=== PATIENT | female | born 1970 | race Asian ===

== ENCOUNTER → 2022-04-18 | Outpatient (CLI) | payer BC | END | disposition home or self-care (01) | LOC: LAB SHORT 18:21 → LAB 18:21 | DX: N39.0 Urinary tract infection, site not specified (principal) | CPT/HCPCS: 87077; 87086; 87186 ==

== ENCOUNTER 2022-06-23 06:32 | Day surgery (SDC) | payer BC ==
[~2022-06-23] VITALS: Ht 149.9 cm; Wt 68.1 kg
[2022-06-23] MEDS ORDERED: ALBU8HFA2 (07:33)
[2022-06-23] MEDS ORDERED: PSEU120ER (07:33)
[2022-06-23] MEDS ORDERED: BUPR150ER (07:33)
[2022-06-23] MEDS ORDERED: GABA100 (07:33)
[2022-06-23] MEDS ORDERED: LIOT5 (07:34)
[2022-06-23] MEDS ORDERED: DULERA 100 MCG/13 GM (07:34)
[2022-06-23] MEDS ORDERED: LEVSOD75 (07:34)
[2022-06-23] MEDS ORDERED: MONT10T (07:35)
== END 2022-06-23 09:15 | disposition home or self-care (01) ==
LOC: ORSCSDS 06:32
PROVIDERS: Student in an Organized Health Care Education/Training Program
PROC: 0DBK8ZX Excision of Ascending Colon, Via Natural or Artificial Opening Endoscopic, Diagnostic (ICD-10-PCS; principal; 2022-06-23 08:00)
PROC: 0DBN8ZX Excision of Sigmoid Colon, Via Natural or Artificial Opening Endoscopic, Diagnostic (ICD-10-PCS; principal; 2022-06-23 08:00)
DX: Z12.11 Encounter for screening for malignant neoplasm of colon (principal); D12.2 Benign neoplasm of ascending colon; K63.5 Polyp of colon; J45.909 Unspecified asthma, uncomplicated; E03.9 Hypothyroidism, unspecified; F32.A Depression, unspecified; F41.8 Other specified anxiety disorders; Z79.899 Other long term (current) drug therapy
CPT/HCPCS: 88305; J2405; J2704; J7120

== ENCOUNTER 2023-06-16 10:38 | Day surgery (SDC) | payer BC ==
[~2023-06-16] VITALS: Ht 149.9 cm; Wt 70.4 kg
[~2023-06-16 10:38] MED LIST: ALBU8HFA2; BUPR150ER; DULERA 100 MCG/13 GM; GABA100; LEVSOD75; LIOT5; MONT10T; PSEU120ER
[2023-06-16] MEDS ORDERED: PROG100 PO (12:09)
[2023-06-16 14:11] VITALS: BP 125/80
== END 2023-06-16 14:24 | disposition home or self-care (01) ==
LOC: ORSCSDS 10:38
PROVIDERS: Internal Medicine Gastroenterology
PROC: 0DJD8ZZ Inspection of Lower Intestinal Tract, Via Natural or Artificial Opening Endoscopic (ICD-10-PCS; principal; 2023-06-16 12:15)
DX: Z12.11 Encounter for screening for malignant neoplasm of colon (principal); R12 Heartburn; Z86.010 Personal history of colon polyps; Z79.899 Other long term (current) drug therapy
CPT/HCPCS: J2704; J7120

== ENCOUNTER → 2025-07-14 | Outpatient (CLI) | payer BC ==
[~2025-07-14] MED LIST changes: +PROG100 PO
== END | disposition home or self-care (01) ==
LOC: LAB SHORT 16:37 → LAB 16:37
PROVIDERS: Family Medicine
DX: Z01.419 Encounter for gynecological examination (general) (routine) without abnormal findings (principal)
CPT/HCPCS: 87624; G0145